=== PATIENT | female | born 1950 | race Caucasian/White ===

== ENCOUNTER → 2016-11-07 | Outpatient (CLI) | payer MEDICARE, MEDICAID ==
[~2016-11-07] MED LIST: 00186-0370-20 IH; 00186-0372-20 IH; AMOXICILLIN 50500 MG PO; AMOXICILLIN875 MG PO; ANTIVERT 25MG25 MG PO; ASPIRIN 32325 MG/TAB PO; ASPIRIN 81M81 MG/TA2 PO; ASPIRIN E.C. 8181 MG PO; BLOOD PRESSURE MED; CARAFATE 1GM1 G PO; CARDI-OMEGA1000 MG PO; CARDIZEM CD 18180 MG PO; CARDIZEM CD 24240 MG PO; CHELATED IRON27 MG PO; COREG 6.256.25 MG/TA PO; COREG12.5 MG PO; COZAAR 25MG25 MG/TAB PO; CYMBALTA 30MG30 MG PO; CYMBALTA 60MG60 MG PO; DYAZIDE 25 MG-31 CAP PO; EPA FISH OIL1000 MG PO; FERROUS SU325 MG/TAB PO; FERROUS SULFAT325 M2 PO; FERROUS SULFATE27 MG PO; GLIPIZIDE5 M1 PO; GLUCOPHAGE1000 MG PO; GLUCOPHAGE500 MG/TAB PO; GLUCOPHAGE850 MG/TAB PO; GLUCOTROL10 MG PO; GRALISE300 MG PO; GRALISE600 MG PO; HCTZ 25MG TAB25 MG PO; IMDUR 30MG30 MG/TAB PO; IRON65 M1 PO; K-DUR 10 MEQ T10 MEQ PO; LASIX 20MG TABL20 MG PO; LASIX 40MG TABL40 MG PO; LEVEMIR SC; LEVEMIR100 U/ML SQ; LEVOXYL0.088 MG PO; LIPITOR 40MG TA40 MG PO; LUTEIN PO; LUTEIN6 MG PO; LYRICA 50MG CAP50 MG PO; MACROBID 1100 MG/CAP PO; MAXZIDE-25MG TA1 TAB PO; METFORMIN850 MG PO; MOTRIN 200200 MG/TAB PO; MULTIPLE VITAMI1 TA5 PO; NATURE'S BLEND100 MG PO; NEURONTIN300 MG/CAP PO; NITROSTAT0.4 MG/TAB SL; NORVASC 10MG10 MG PO; NOVLOG SC; NOVOLOG 100U100 U/M1 SQ; PEPCID 20MG TAB20 MG PO; PERCOCET 325 MG1 TA2 PO; PLAVIX 75MG TAB75 MG PO; PRIL40; PROTONIX 40MG T40 MG PO; RANEXA1000 MG PO; SALONPAS; SYNTHROID0.1 MG/TAB PO; TAZTIA240 PO; TENORMIN100 MG PO; TIAZAC240 MG PO; TOPROL XL 25MG25 MG PO; TRAVATAN Z 2.52.5 ML OD; TRAVATAN Z 5 ML5 ML OU; TUDORZA IH; TYLENOL 325MG325 MG PO; TYLENOL 500MG500 MG PO; ULTRAM 50MG TAB50 MG PO; VENTOLIN0.09 MG IH; VICTOZA6 MG/ML SQ; ZESTRIL 5MG5 MG PO; ZYLOPRIM 300MG300 MG PO; [UNRECOGNIZED DRUG - OTHER] PO
[2016-11-07 08:58] LABS: ADJUSTED CALCIUM 9.2 mg/dL (8.4-10.2); BILIRUBIN,TOTAL 0.6 mg/dL (0.0-1.0); CALCIUM 9.2 mg/dL (8.4-10.2); CREATININE, serum 1.13 mg/dL (0.52-1.25); POTASSIUM 4.5 mmol/L (3.4-5.0); TOTAL PROTEIN 6.9 gm/dL (6.4-8.2)
== END ==
LOC: COL.LAB 08:11
PROVIDERS: Internal Medicine Endocrinology, Diabetes & Metabolism
DX: E11.65 Type 2 diabetes mellitus with hyperglycemia (principal); Z79.4 Long term (current) use of insulin; E03.8 Other specified hypothyroidism

== ENCOUNTER 2016-12-04 09:02 | Emergency (ER) | payer MEDICARE, MEDICAID ==
[~2016-12-04] VITALS: Ht 162.6 cm; Wt 96.7 kg
[~2016-12-04 09:02] MED LIST changes: -AMOXICILLIN875 MG PO; -ANTIVERT 25MG25 MG PO; -CYMBALTA 30MG30 MG PO; -FERROUS SU325 MG/TAB PO; -LUTEIN6 MG PO; -MACROBID 1100 MG/CAP PO; -SYNTHROID0.1 MG/TAB PO; -TIAZAC240 MG PO; -TRAVATAN Z 5 ML5 ML OU
[2016-12-04 09:06] VITALS: BP 135/83; TEMP 98.1
[2016-12-04] MEDS ORDERED: SYNTHROID0.1 MG/TAB PO (09:31)
[2016-12-04] MEDS ORDERED: ULTRAM 50MG TAB50 MG PO (09:32)
[2016-12-04] MEDS ORDERED: NOVOLOG 100U100 U/M1 SQ (09:37)
[2016-12-04] MEDS ORDERED: LUTEIN6 MG PO (09:40)
[2016-12-04] MEDS ORDERED: AMOXICILLIN875 MG PO (09:55)
[2016-12-04 09:57] LABS: INFLUENZA B NEGATIVE
[2016-12-04 10:11] VITALS: PULSE 110
== END 2016-12-04 10:11 | disposition home or self-care (01) ==
LOC: COL.ER 09:02
PROVIDERS: Family Medicine
DX: J02.0 Streptococcal pharyngitis (principal); J32.9 Chronic sinusitis, unspecified; H92.01 Otalgia, right ear; E11.9 Type 2 diabetes mellitus without complications

== ENCOUNTER → 2017-02-12 | Outpatient (CLI) | payer MEDICARE, MEDICAID ==
[~2017-02-12] MED LIST changes: +AMOXICILLIN875 MG PO; +ANTIVERT 25MG25 MG PO; +CYMBALTA 30MG30 MG PO; +FERROUS SU325 MG/TAB PO; +LUTEIN6 MG PO; +MACROBID 1100 MG/CAP PO; +SYNTHROID0.1 MG/TAB PO; +TIAZAC240 MG PO; +TRAVATAN Z 5 ML5 ML OU
[2017-02-12 10:10] LABS: ADJUSTED CALCIUM 9.4 mg/dL (8.4-10.2); BILIRUBIN,TOTAL 0.5 mg/dL (0.0-1.0); CALCIUM 9.4 mg/dL (8.4-10.2); CREATININE, serum 0.99 mg/dL (0.52-1.25); POTASSIUM 4.1 mmol/L (3.4-5.0); TOTAL PROTEIN 6.5 gm/dL (6.4-8.2)
[2017-02-13 17:09] LABS: ALBUMIN/CREATININE RATIO URINE 20.9 mg/g (0.0-29.0)
== END ==
LOC: COL.LAB 08:26
PROVIDERS: Internal Medicine Endocrinology, Diabetes & Metabolism
DX: E11.65 Type 2 diabetes mellitus with hyperglycemia (principal); E78.5 Hyperlipidemia, unspecified; E03.9 Hypothyroidism, unspecified; Z79.4 Long term (current) use of insulin

== ENCOUNTER → 2017-06-10 | Outpatient (CLI) | payer MEDICARE, MEDICAID ==
[2017-06-10 10:54] LABS: ADJUSTED CALCIUM 8.9 mg/dL (8.4-10.2); ALBUMIN 4.3 gm/dL (3.5-5.0); BILIRUBIN,TOTAL 0.5 mg/dL (0.0-1.0); CALCIUM 9.1 mg/dL (8.4-10.2); CREATININE, serum 0.95 mg/dL (0.52-1.25); TOTAL PROTEIN 7.2 gm/dL (6.4-8.2)
[2017-06-10 11:13] LABS: THYROID STIMULATING HORMONE 2.63 uIU/mL (0.465-4.680)
[2017-06-11 18:13] LABS: ALBUMIN/CREATININE RATIO URINE 23.6 mg/g (0.0-29.0)
== END ==
LOC: COL.LAB 09:45
PROVIDERS: Internal Medicine Endocrinology, Diabetes & Metabolism
DX: E11.65 Type 2 diabetes mellitus with hyperglycemia (principal); E03.9 Hypothyroidism, unspecified; Z79.4 Long term (current) use of insulin

== ENCOUNTER 2017-06-17 12:41 | Emergency (ER) | payer MEDICARE, MEDICAID ==
[~2017-06-17] VITALS: Ht 162.6 cm; Wt 102.3 kg
[~2017-06-17 12:41] MED LIST changes: -ANTIVERT 25MG25 MG PO; -CYMBALTA 30MG30 MG PO; -FERROUS SU325 MG/TAB PO; -MACROBID 1100 MG/CAP PO; -TIAZAC240 MG PO; -TRAVATAN Z 5 ML5 ML OU
[2017-06-17 12:42] VITALS: TEMP 98.4
[2017-06-17] MEDS ORDERED: LIPITOR 40MG TA40 MG PO (13:15)
[2017-06-17] MEDS ORDERED: CYMBALTA 30MG30 MG PO (13:15)
[2017-06-17] MEDS ORDERED: 00186-0370-20 IH (13:16)
[2017-06-17] MEDS ORDERED: FERROUS SU325 MG/TAB PO (13:17)
[2017-06-17] MEDS ORDERED: VICTOZA6 MG/ML SQ (13:26)
[2017-06-17] MEDS ORDERED: TRAVATAN Z 5 ML5 ML OU (13:27)
[2017-06-17] MEDS ORDERED: TIAZAC240 MG PO (13:28)
[2017-06-17 13:57] LABS: PH 5 (5-8); SQUAMOUS EPITHELIAL 0-2 /hpf; URINE APPEARANCE Hazy; URINE BACTERIA Rare /hpf; URINE BILIRUBIN Negative (NEGATIVE); URINE BLOOD Negative (NEGATIVE); URINE COLOR Straw; URINE GLUCOSE Negative (NEGATIVE); URINE KETONE Negative (NEGATIVE); URINE RBC 0-2 /hpf; URINE UROBILINOGEN Negative (NEGATIVE); URINE WBC 20-50 /hpf
[2017-06-17 14:04] LABS: BASO % 0.3 % (0.0-2.0); EOS # 0.1 (0.0-0.7); GRAN # 3.7 (1.4-6.5); GRAN % 52.9 % (42.2-75.2); LYMPH # 2.5 (1.2-3.4); LYMPH % 35.7 % (20.0-51.0); MEAN CELL VOLUME 95 fl (80.0-100.0); MEAN CORPUSCULAR HGB CONC 33 g/dl (33.0-37.0); MEAN PLATELET VOLUME 10.2 fl (7.4-10.4); MONO # 0.6 (0.1-0.6); MONO % 8.7 % (1.7-9.3); PLATELET COUNT 290 K/mm3 (130-400); RED BLOOD COUNT 3.81 M/mm3 (4.10-5.30); REDCELL DISTRIBUTION WIDTH-CV 14.8 % (11.5-14.5); WHITE BLOOD COUNT 7.1 K/mm3 (4.8-10.8)
[2017-06-17 14:05] LABS: HEMATOCRIT 36.2 % (37.0-47.0); HEMOGLOBIN 11.8 g/dl (12.5-16.0); MEAN CORPUSCULAR HEMOGLOBIN 31 pg (27.0-31.0)
[2017-06-17 14:14] LABS: ANION GAP 12 mmol/L (7-16); BLOOD UREA NITROGEN 13 mg/dL (7-17); CALCIUM 9.7 mg/dL (8.4-10.2); CARBON DIOXIDE 29 mmol/L (22-30); CHLORIDE 102 mmol/L (98-107); GLUCOSE 115 mg/dL (74-106); MAGNESIUM 1.2 mg/dL (1.6-2.3); POTASSIUM 4.3 mmol/L (3.4-5.0); SODIUM 143 mmol/L (137-145)
[2017-06-17 14:26] LABS: TROPONIN-I < 0.012 ng/mL (0.000-0.034)
[2017-06-17] MEDS ORDERED: ANTIVERT 25MG25 MG PO (14:45)
[2017-06-17] MEDS ORDERED: MACROBID 1100 MG/CAP PO (14:45)
[2017-06-17 14:52] VITALS: BP 137/78; PULSE 83
== END 2017-06-17 15:15 | disposition home or self-care (01) ==
LOC: COL.ER 12:41
PROVIDERS: Physician Assistant
DX: R42 Dizziness and giddiness (principal); N39.0 Urinary tract infection, site not specified; J45.909 Unspecified asthma, uncomplicated; I25.10 Atherosclerotic heart disease of native coronary artery without angina pectoris; E11.9 Type 2 diabetes mellitus without complications; I10 Essential (primary) hypertension; E03.9 Hypothyroidism, unspecified; H40.9 Unspecified glaucoma; Z79.4 Long term (current) use of insulin; Z95.1 Presence of aortocoronary bypass graft; Z79.84 Long term (current) use of oral hypoglycemic drugs; Z79.82 Long term (current) use of aspirin

== ENCOUNTER → 2017-09-04 | Outpatient (CLI) | payer MEDICARE, MEDICAID ==
[~2017-09-04] MED LIST changes: +ANTIVERT 25MG25 MG PO; +CYMBALTA 30MG30 MG PO; +FERROUS SU325 MG/TAB PO; +MACROBID 1100 MG/CAP PO; +TIAZAC240 MG PO; +TRAVATAN Z 5 ML5 ML OU
[2017-09-04 10:57] LABS: BASO % 0.5 % (0.0-2.0); EOS # 0.1 (0.0-0.7); EOS % 2.1 % (0-4.0); GRAN # 3.8 (1.4-6.5); GRAN % 57.8 % (42.2-75.2); LYMPH # 2.1 (1.2-3.4); LYMPH % 32.4 % (20.0-51.0); MEAN CELL VOLUME 97 fl (80.0-100.0); MEAN CORPUSCULAR HGB CONC 32 g/dl (33.0-37.0); MEAN PLATELET VOLUME 10.8 fl (7.4-10.4); MONO # 0.4 (0.1-0.6); MONO % 6.6 % (1.7-9.3); PLATELET COUNT 291 K/mm3 (130-400); RED BLOOD COUNT 3.75 M/mm3 (4.10-5.30); WHITE BLOOD COUNT 6.6 K/mm3 (4.8-10.8)
[2017-09-04 10:58] LABS: HEMATOCRIT 36.4 % (37.0-47.0); HEMOGLOBIN 11.5 g/dl (12.5-16.0); MEAN CORPUSCULAR HEMOGLOBIN 31 pg (27.0-31.0)
[2017-09-04 11:09] LABS: ALBUMIN 4.4 gm/dL (3.5-5.0); BILIRUBIN,TOTAL 0.3 mg/dL (0.0-1.0); CALCIUM 9.3 mg/dL (8.4-10.2); CHOLESTEROL RISK RATIO 3.8; CREATININE, serum 1.01 mg/dL (0.52-1.25); POTASSIUM 4.4 mmol/L (3.4-5.0); TOTAL PROTEIN 7.1 gm/dL (6.4-8.2)
[2017-09-04 11:38] LABS: THYROID STIMULATING HORMONE 4.22 uIU/mL (0.465-4.680)
[2017-09-05 11:41] LABS: COLLECTION METHOD CLEAN CATCH
[2017-09-05 11:46] LABS: MUCOUS Present /lpf; PH 5 (5-8); SQUAMOUS EPITHELIAL None Seen /hpf; URINE APPEARANCE Clear; URINE BACTERIA None Seen /hpf; URINE BILIRUBIN Negative (NEGATIVE); URINE BLOOD Negative (NEGATIVE); URINE COLOR Straw; URINE GLUCOSE Negative (NEGATIVE); URINE KETONE Negative (NEGATIVE); URINE LEUKOCYTE ESTERASE Negative (NEGATIVE); URINE PROTEIN(semi-quant) Negative (NEGATIVE); URINE RBC 0-2 /hpf; URINE UROBILINOGEN Negative (NEGATIVE); URINE WBC 0-2 /hpf
== END ==
LOC: COL.LAB 09:27
PROVIDERS: Internal Medicine Endocrinology, Diabetes & Metabolism
DX: Z11.59 Encounter for screening for other viral diseases (principal); E11.65 Type 2 diabetes mellitus with hyperglycemia; I25.9 Chronic ischemic heart disease, unspecified; E03.9 Hypothyroidism, unspecified; E66.9 Obesity, unspecified; R80.9 Proteinuria, unspecified; I10 Essential (primary) hypertension; E11.42 Type 2 diabetes mellitus with diabetic polyneuropathy; E78.2 Mixed hyperlipidemia; Z79.4 Long term (current) use of insulin

== ENCOUNTER → 2017-09-05 | Outpatient (CLI) | payer MEDICARE, MEDICAID | LOC: MC.RAD 16:32 | DX: Z12.31 Encounter for screening mammogram for malignant neoplasm of breast (principal) ==

== ENCOUNTER 2018-09-28 12:24 | Day surgery (SDC) | payer MEDICARE ==
[~2018-09-28] VITALS: Ht 162.6 cm; Wt 95.5 kg
[~2018-09-28 12:24] MED LIST changes: -CYMBALTA 30MG30 MG PO; -GLUCOPHAGE850 MG/TAB PO; +LEVEMIR FLEX100 U/ML SQ; -LEVEMIR100 U/ML SQ; +NOVOLOG FLEX100 U/ML SQ; +PRILOSEC 20MG20 MG PO; -SYNTHROID0.1 MG/TAB PO; +SYNTHROID0.112 MG/T PO
[2018-09-28] MEDS ORDERED: TOPROL XL100 MG PO (13:06)
[2018-09-28] MEDS ORDERED: PLAVIX 75MG TAB75 MG PO (13:07)
[2018-09-28] MEDS ORDERED: ERGOCALCIFER50000 IU PO (13:07)
[2018-09-28 13:42] VITALS: BP 149/92; PULSE 98; TEMP 98
[2018-09-28 15:00] VITALS: BP 143/80; PULSE 104; TEMP 97.7
[2018-09-28 15:15] VITALS: BP 128/75; PULSE 113
[2018-09-28 15:30] VITALS: BP 129/75; PULSE 107
[2018-09-28 15:45] VITALS: BP 116/61; PULSE 116
== END 2018-09-28 16:03 | disposition home or self-care (01) ==
LOC: SDCO 12:24
DX: Z12.11 Encounter for screening for malignant neoplasm of colon (principal); D12.2 Benign neoplasm of ascending colon; D17.5 Benign lipomatous neoplasm of intra-abdominal organs; K57.30 Diverticulosis of large intestine without perforation or abscess without bleeding; K21.9 Gastro-esophageal reflux disease without esophagitis; E78.00 Pure hypercholesterolemia, unspecified; E11.9 Type 2 diabetes mellitus without complications; J45.909 Unspecified asthma, uncomplicated; K44.9 Diaphragmatic hernia without obstruction or gangrene; E66.9 Obesity, unspecified; Z68.36 Body mass index [BMI] 36.0-36.9, adult; Z88.8 Allergy status to other drugs, medicaments and biological substances; Z79.02 Long term (current) use of antithrombotics/antiplatelets; Z79.82 Long term (current) use of aspirin; Z86.010 Personal history of colon polyps; Z80.0 Family history of malignant neoplasm of digestive organs; Z83.79 Family history of other diseases of the digestive system
CPT/HCPCS: J2250; J3010; J7030; J7042

== ENCOUNTER → 2018-11-08 | Outpatient (CLI) | payer MEDICARE, OTHER ==
[~2018-11-08] MED LIST changes: +ERGOCALCIFER50000 IU PO; +TOPROL XL100 MG PO
== END ==
LOC: MC.RAD 10-18 08:00
DX: Z12.31 Encounter for screening mammogram for malignant neoplasm of breast (principal)

== ENCOUNTER → 2019-04-02 | Outpatient (CLI) | payer OTHER ==
[2019-04-02 17:04] LABS: BASO % 0.2 % (0.0-2.0); EOS # 0.2 (0.0-0.7); EOS % 2.5 % (0-4.0); GRAN # 4.6 (1.4-6.5); GRAN % 56.5 % (42.2-75.2); HEMOGLOBIN 11.1 g/dl (12.5-16.0); LYMPH # 2.7 (1.2-3.4); LYMPH % 32.5 % (20.0-51.0); MEAN CELL VOLUME 94 fl (80.0-100.0); MEAN CORPUSCULAR HEMOGLOBIN 30 pg (27.0-31.0); MEAN CORPUSCULAR HGB CONC 32 g/dl (33.0-37.0); MEAN PLATELET VOLUME 9.9 fl (7.4-10.4); MONO # 0.6 (0.1-0.6); MONO % 7.7 % (1.7-9.3); PLATELET COUNT 326 K/mm3 (130-400); RED BLOOD COUNT 3.74 M/mm3 (4.10-5.30); REDCELL DISTRIBUTION WIDTH-CV 15.1 % (11.5-14.5)
[2019-04-02 17:15] LABS: ALANINE AMINOTRANSFERASE 6 U/L (9-52); ALBUMIN 4.1 gm/dL (3.5-5.0); ALKALINE PHOSPHATASE 59 U/L (50-136); ANION GAP 12 mmol/L (7-16); AST,SGOT 22 U/L (15-37); BILIRUBIN,TOTAL 0.2 mg/dL (0.0-1.0); BLOOD UREA NITROGEN 20 mg/dL (7-17); CALCIUM 9.2 mg/dL (8.4-10.2); CARBON DIOXIDE 25 mmol/L (22-30); CHLORIDE 106 mmol/L (98-107); CREATININE, serum 0.93 (0.52-1.25); GLUCOSE 91 mg/dL (74-106); SODIUM 143 mmol/L (137-145); TOTAL PROTEIN 7.2 gm/dL (6.4-8.2)
[2019-04-02 17:28] LABS: TROPONIN-I < 0.012 ng/mL (0.000-0.035)
== END ==
LOC: COL.RAD 15:26
PROVIDERS: Nurse Practitioner Family
DX: M17.12 Unilateral primary osteoarthritis, left knee (principal); R06.02 Shortness of breath; Z95.1 Presence of aortocoronary bypass graft; Z98.890 Other specified postprocedural states

== ENCOUNTER 2020-04-28 16:46 | Emergency (ER) | payer MEDICARE ==
[~2020-04-28] VITALS: Ht 162.6 cm; Wt 97.7 kg
[2020-04-28 16:48] VITALS: TEMP 97.9
[2020-04-28] MEDS ORDERED: PERCOCET 325 MG1 TA2 PO (17:44)
[2020-04-28 18:09] VITALS: BP 180/92; PULSE 84
== END 2020-04-28 18:10 | disposition home or self-care (01) ==
LOC: COL.ER 16:46
DX: S42.332A Displaced oblique fracture of shaft of humerus, left arm, initial encounter for closed fracture (principal); S42.342A Displaced spiral fracture of shaft of humerus, left arm, initial encounter for closed fracture; I48.91 Unspecified atrial fibrillation; I25.10 Atherosclerotic heart disease of native coronary artery without angina pectoris; I25.2 Old myocardial infarction; I10 Essential (primary) hypertension; E11.9 Type 2 diabetes mellitus without complications; Z79.02 Long term (current) use of antithrombotics/antiplatelets; Z79.4 Long term (current) use of insulin; Z79.82 Long term (current) use of aspirin; W01.0XXA Fall on same level from slipping, tripping and stumbling without subsequent striking against object, initial encounter; W22.8XXA Striking against or struck by other objects, initial encounter; Y92.009 Unspecified place in unspecified non-institutional (private) residence as the place of occurrence of the external cause

== ENCOUNTER 2020-04-30 10:27 | Day surgery (SDC) | payer MEDICARE ==
[2020-04-30] VITALS (11 sets, daily range): BP systolic 128–159; BP diastolic 62–91; PULSE 87–98; TEMP 98–981
[~2020-04-30] VITALS: Ht 162.6 cm; Wt 100.1 kg
[2020-04-30] MEDS ORDERED: VITAMIN B12 781 TAB PO (11:17)
[2020-04-30] MEDS ORDERED: SYNTHROID0.125 MG/T PO (11:19)
[2020-04-30] MEDS ORDERED: NOVOLIN 70/30 710 ML SQ (11:19)
[2020-04-30] MEDS ORDERED: MOTRIN 200200 MG/TAB PO (11:22)
[2020-04-30] MEDS ORDERED: PERCOCET 325 MG1 TA2 PO (11:23)
--- NOTE | 2020-04-30 11:24 | NUR ---
KRISTINA Godinez was notified that the patient has not taken her Metoprolol since yesterday morning 0800. He verbalized understanding and orders were obtained at this time. Will continue to monitor the patient.
--- NOTE | 2020-04-30 11:45 | NUR ---
The nurse call the lab to check on the status of the patient's lab results that were drawn over 30 minutes ago. The nurse was told that the patient's blood that was drawn, with the IV start, has not returned to the lab to be ran yet. The nurse informed the lab personnel that the patient is scheduled for surgery 1230 and the lab results need to be back before that. The lab personnel verbalized understanding.
[2020-04-30 11:57] LABS: BASO % 0.3 % (0.0-2.0); EOS # 0.2 (0.0-0.7); EOS % 1.9 % (0-4.0); GRAN # 4.8 (1.4-6.5); GRAN % 59.8 % (42.2-75.2); HEMATOCRIT 39.3 % (37.0-47.0); HEMOGLOBIN 12.7 g/dl (12.5-16.0); LYMPH # 2.3 (1.2-3.4); LYMPH % 28.9 % (20.0-51.0); MEAN CELL VOLUME 93 fl (80.0-100.0); MEAN CORPUSCULAR HEMOGLOBIN 30 pg (27.0-31.0); MEAN CORPUSCULAR HGB CONC 32 g/dl (33.0-37.0); MEAN PLATELET VOLUME 11.1 fl (7.4-10.4); MONO # 0.7 (0.1-0.6); MONO % 8.5 % (1.7-9.3); PLATELET COUNT 259 K/mm3 (130-400); RED BLOOD COUNT 4.23 M/mm3 (4.10-5.30); REDCELL DISTRIBUTION WIDTH-CV 15.5 % (11.5-14.5)
[2020-04-30 12:09] LABS: ALBUMIN 4.2 gm/dL (3.5-5.0); BILIRUBIN,TOTAL 0.6 mg/dL (0.0-1.0); CALCIUM 9.3 mg/dL (8.4-10.2); CREATININE, serum 0.94 (0.52-1.25); POTASSIUM 3.6 mmol/L (3.4-5.0); TOTAL PROTEIN 7.6 gm/dL (6.4-8.2)
--- NOTE | 2020-04-30 17:05 | NUR ---
Patient arrived to floor from PACUvia bed. Patient is sleepy but rouses easily, is alert and oriented while awake. Post op checks initiated. Patient is on O2 at 2L via NC, SpO2 at 97%, will titrate as able. CMS intact in left hand, color is normal, cap refill <3 seconds. Patient denies pain in left arm or shoulder, no nausea. IVF infusing per order. Patient denies needs at this time, call light within reach.
--- NOTE | 2020-04-30 21:00 | NUR ---
Pt in bed, is alert and oriented x4. Has large drsg to left shoulder, wearing a sling. Has good movement and warmth of left hand/fingers, reports numbness and denies pain. IVF infusing to rt hand without redness or swelling.
[2020-05-01 00:18] VITALS: BP 123/60; PULSE 89; TEMP 98
[2020-05-01 05:10] VITALS: BP 137/58; PULSE 94; TEMP 98.4
--- NOTE | 2020-05-01 06:09 | NUR ---
PT DENIES PAIN. REPORTS "A LITTLE" NUMBNESS IN FINGERS ON LEFT HAND.
[2020-05-01 07:45] VITALS: BP 155/69; PULSE 93; TEMP 97.6
--- NOTE | 2020-05-01 08:06 | NUR ---
Sitting up in bed. Denies pain. Dressing to left shoulder CDI. Left arm is in sling. Patient is aware that she will be able to go home as soon as we are able to complete her discharge paperwork. Denies additional needs at this time.
--- NOTE | 2020-05-01 08:56 | NUR ---
Reviewed discharge instructions with the patient. Questions answered. Patient verbalizes understanding to all and denies additional questions or concerns. Patient signs all discharge paperwork. Discharge packet provided to the patient. Will notify her son that he can come to the hospital to pick her up.
--- NOTE | 2020-05-01 09:15 | NUR ---
Patient dressed and ready to leave. Has all personal belongings. 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 Patient out to POV via wheel chair.
== END 2020-05-01 09:15 | disposition home or self-care (01) ==
LOC: SDCO 10:27 → SURG 17:00 → SDCO 05-01 09:15
PROVIDERS: Orthopaedic Surgery
DX: S42.342A Displaced spiral fracture of shaft of humerus, left arm, initial encounter for closed fracture (principal); J45.909 Unspecified asthma, uncomplicated; I48.91 Unspecified atrial fibrillation; I50.9 Heart failure, unspecified; E11.9 Type 2 diabetes mellitus without complications; M10.9 Gout, unspecified; E78.00 Pure hypercholesterolemia, unspecified; M81.0 Age-related osteoporosis without current pathological fracture; I25.2 Old myocardial infarction; G47.33 Obstructive sleep apnea (adult) (pediatric); K21.9 Gastro-esophageal reflux disease without esophagitis; M06.9 Rheumatoid arthritis, unspecified; D64.9 Anemia, unspecified; Z87.891 Personal history of nicotine dependence; Z79.4 Long term (current) use of insulin; Z88.8 Allergy status to other drugs, medicaments and biological substances; Z79.82 Long term (current) use of aspirin
CPT/HCPCS: OP; C1713; C1769; J0330; J0690; J1100; J1815; J1885; J2250; J2405; J2704; J2795; J7030; J7120

== ENCOUNTER 2020-05-09 14:40 | Emergency (ER) | payer MEDICARE ==
[~2020-05-09] VITALS: Ht 162.6 cm; Wt 97.7 kg
[~2020-05-09 14:40] MED LIST changes: +NOVOLIN 70/30 710 ML SQ; +SYNTHROID0.125 MG/T PO; +VITAMIN B12 781 TAB PO
[2020-05-09 15:03] VITALS: TEMP 98.2
[2020-05-09 16:11] VITALS: BP 144/75; PULSE 93
[2020-05-09] MEDS ORDERED: CYMBALTA 20MG20 MG PO (16:11)
== END 2020-05-09 16:15 | disposition home or self-care (01) ==
LOC: COL.ER 14:40
DX: R60.9 Edema, unspecified (principal); R58 Hemorrhage, not elsewhere classified; M25.522 Pain in left elbow; G89.18 Other acute postprocedural pain; I10 Essential (primary) hypertension; Z79.82 Long term (current) use of aspirin; Z79.4 Long term (current) use of insulin; Z79.890 Hormone replacement therapy

== ENCOUNTER → 2020-10-27 | Outpatient (CLI) | payer MEDICARE ==
[~2020-10-27] MED LIST changes: +CYMBALTA 20MG20 MG PO
== END ==
LOC: MC.RAD 10:42
DX: Z12.31 Encounter for screening mammogram for malignant neoplasm of breast (principal)

== ENCOUNTER 2021-03-04 14:30 | Outpatient (RCR) | payer MEDICARE | END 2021-05-13 | disposition home or self-care (01) | LOC: MKS.ESL.OT | DX: G56.03 Carpal tunnel syndrome, bilateral upper limbs (principal) ==

== ENCOUNTER → 2021-04-13 | Outpatient (CLI) | payer MEDICARE | LOC: MHCPAIN 12:56 | DX: M47.812 Spondylosis without myelopathy or radiculopathy, cervical region (principal); M79.2 Neuralgia and neuritis, unspecified; M54.2 Cervicalgia | CPT/HCPCS: G0463 ==

== ENCOUNTER → 2022-02-22 | Outpatient (CLI) | payer MEDICARE | LOC: MC.RAD 14:40 | DX: Z12.31 Encounter for screening mammogram for malignant neoplasm of breast (principal) ==

== ENCOUNTER → 2022-06-22 | Outpatient (CLI) | payer MEDICARE | LOC: MHCPAIN 14:55 | DX: M54.50 Low back pain, unspecified (principal); M53.3 Sacrococcygeal disorders, not elsewhere classified; M65.841 Other synovitis and tenosynovitis, right hand; M25.512 Pain in left shoulder; M54.2 Cervicalgia; I83.893 Varicose veins of bilateral lower extremities with other complications | CPT/HCPCS: G0463 ==

== ENCOUNTER → 2022-06-22 | Outpatient (CLI) | payer MEDICARE | LOC: COL.RAD 16:32 | DX: M51.36 Other intervertebral disc degeneration, lumbar region (principal); M25.512 Pain in left shoulder ==

== ENCOUNTER 2022-08-11 12:43 | Outpatient (RCR) | payer MEDICARE | END 2022-08-15 | disposition home or self-care (01) | LOC: MKS.ESL.PT | DX: M54.50 Low back pain, unspecified (principal) ==

== ENCOUNTER → 2022-11-28 | Outpatient (CLI) | payer MEDICARE | LOC: COL.RAD 09-22 09:00 | DX: M47.816 Spondylosis without myelopathy or radiculopathy, lumbar region (principal) ==

== ENCOUNTER → 2023-01-11 | Outpatient (CLI) | payer MEDICARE | LOC: MHCPAIN 10:20 | DX: M54.2 Cervicalgia (principal); M79.18 Myalgia, other site; M47.816 Spondylosis without myelopathy or radiculopathy, lumbar region; I83.893 Varicose veins of bilateral lower extremities with other complications | CPT/HCPCS: G0463 ==

== ENCOUNTER → 2023-02-07 | Outpatient (CLI) | payer MEDICARE | LOC: MHCPAIN 11:28 | DX: M79.18 Myalgia, other site (principal); M54.2 Cervicalgia; M25.512 Pain in left shoulder | CPT/HCPCS: G0463 ==